=== PATIENT | female | born 1955 | race Hispanic/Latino ===

== ENCOUNTER 2022-11-20 00:39 | Emergency (ER) | payer OTHER ==
[2022-11-20] MEDS ORDERED: traMADol HCl 50 MG TAB ONE (01:14)
[2022-11-20] MEDS ORDERED: Lidocaine 1% PF 5 ML VIAL ONE (01:36)
[2022-11-20] MEDS ORDERED: Bacitracin 1 PK ONE (02:26)
== END 2022-11-20 02:30 | disposition home or self-care (01) ==
LOC: CSHERS 00:39
DX: S01.112A Laceration without foreign body of left eyelid and periocular area, initial encounter (principal); W01.0XXA Fall on same level from slipping, tripping and stumbling without subsequent striking against object, initial encounter; Y92.091 Bathroom in other non-institutional residence as the place of occurrence of the external cause
CPT/HCPCS: 12011; 70450

== ENCOUNTER 2025-06-24 20:40 | Inpatient (IN) | payer OTHER ==
[~2025-06-24 20:40] MED LIST: Iopamidol 370 76% 100 ML VIAL ONE
[2025-06-24 21:13] LABS: #Basophils 0.04 10x3/uL (0.0-0.2); #Eosinophils 0.12 10x3/uL (0.0-0.5); #Monocytes 0.50 10x3/uL (0.0-1.1); #Neutrophils 2.58 10x3/uL (1.5-8.4); %Basophils 0.8 % (0.0-2.0); %Eosinophils 2.5 % (0.0-6.0); %Lymphocytes 33.1 % (18.0-47.0); %Monocytes 10.3 % (0.0-10.0); %Neutrophils 52.9 % (40.0-75.0); Hematocrit 44.7 % (34.9-44.5); Hemoglobin 15.0 g/dL (12.0-15.5); Mean Corpuscular Hemoglobin 30.2 pg (27.0-33.0); Mean Corpuscular Volume 89.9 fL (81.6-98.3); Platelet Count 154 10x3/uL (150-450); Red Blood Cell (RBC) Count 4.97 10x6/uL (3.90-5.03); White Blood Cell (WBC) Count 4.87 10x3/uL (3.5-10.5)
[2025-06-24 21:31] LABS: Glucose, Urine (Dipstick) >=1000 mg/dL (Negative); Leukocyte Negative (Negative); Protein, Urine (Dipstick) Negative (Neg-Trace); Specific Gravity, Urine 1.010 (1.005-1.030)
[2025-06-24 21:39] LABS: Cocaine Metabolite Screen Negative (Negative); THC/Cannabinoid Screen Negative (Negative); Tricyclic Screen PRELIM POSITIVE (Negative)
[2025-06-24 21:42] LABS: Acetaminophen 14 mcg/mL (Less than 10); Lipase 49 U/L (8-78); Salicylate Less than 8.0 mg/dL (Less than 8.0)
[2025-06-24 21:43] LABS: ALT (SGPT) 54 U/L (Less than 34); AST (SGOT) 46 U/L (11-34); Albumin 3.9 g/dL (3.1-4.5); Alkaline Phosphatase 85 U/L (40-110); Anion Gap 18 mmol/L (10-20); BUN (Urea Nitrogen) 13 mg/dL (9.8-20.1); Bilirubin, Total 0.2 mg/dL (0.3-1.2); Calc. Creatinine Clearance 0 mL/min (70-130); Calcium 9.0 mg/dL (7.8-10.44); Carbon Dioxide 24 mmol/L (23-31); Chloride 94 mmol/L (98-107); Globulin 4.0 g/dL (2.4-3.5); Glucose 203 mg/dL (83-110); Potassium 5.2 mmol/L (3.5-5.1); Sodium 131 mmol/L (136-145)
[2025-06-24 21:48] LABS: Troponin I Less than 0.010 ng/mL (< 0.028)
[2025-06-24 21:52] LABS: Bacteria/HPF None Seen HPF (None Seen); CAUTI Indications for Culture Alt mental st,lethar; RBC/HPF None Seen HPF (0-3); WBC/HPF None Seen HPF (0-3)
[2025-06-24 21:53] LABS: Urine Culture Reflex No No
[2025-06-24] MEDS ORDERED: hydrALAZINE 20 MG/ML VIAL SLOW IVP PRN (23:37)
[2025-06-24] MEDS ORDERED: Senokot S 8.6-50 MG TAB PO PRN (23:40)
[2025-06-24] MEDS ORDERED: Ondansetron PF 4 MG/2 ML Vial IVP PRN (23:40)
[2025-06-24] MEDS ORDERED: Aspirin Chewable 81 MG TAB ONE (23:45)
[2025-06-25] MEDS ORDERED: Glucagon 1 MG/ML KIT IM PRN (01:02)
[2025-06-25] MEDS ORDERED: Dextrose 50% Abboject 50 ML SYRINGE SLOW IVP PRN (01:02)
[2025-06-25 02:05] VITALS: BMI 33.2
[2025-06-25] MEDS ORDERED: PNEUMOC 20-VAL CONJ-DIP CRM/PF 0.5 ML SYRINGE IM ONE (02:15)
[2025-06-25] MEDS: Furosemide 40 MG (4 mL) VIAL SLOW IVP SCH ×2 (02:35→09:38)
[2025-06-25 04:26] LABS: #Basophils 0.03 10x3/uL (0.0-0.2); #Eosinophils 0.15 10x3/uL (0.0-0.5); #Monocytes 0.43 10x3/uL (0.0-1.1); #Neutrophils 1.83 10x3/uL (1.5-8.4); %Basophils 0.8 % (0.0-2.0); %Eosinophils 3.9 % (0.0-6.0); %Lymphocytes 36.1 % (18.0-47.0); %Monocytes 11.2 % (0.0-10.0); %Neutrophils 47.5 % (40.0-75.0); Hematocrit 45.3 % (34.9-44.5); Hemoglobin 14.8 g/dL (12.0-15.5); Mean Corpuscular Hemoglobin 29.5 pg (27.0-33.0); Mean Corpuscular Volume 90.2 fL (81.6-98.3); Platelet Count 140 10x3/uL (150-450); Red Blood Cell (RBC) Count 5.02 10x6/uL (3.90-5.03); White Blood Cell (WBC) Count 3.85 10x3/uL (3.5-10.5)
[2025-06-25 04:41] LABS: Anion Gap 18 mmol/L (10-20); BUN (Urea Nitrogen) 11 mg/dL (9.8-20.1); Calc. Creatinine Clearance 150 mL/min (70-130); Calcium 8.8 mg/dL (7.8-10.44); Carbon Dioxide 29 mmol/L (23-31); Cardiac Risk 4.9 (Less than 4.5); Chloride 94 mmol/L (98-107); Cholesterol 187 mg/dl (< 200 Desired); Glucose 163 mg/dL (83-110); HDL Cholesterol 38 mg/dL (>60 Neg Risk); LDL Cholesterol, Calculated 105 mg/dL; Potassium 3.9 mmol/L (3.5-5.1); Sodium 137 mmol/L (136-145); Triglycerides 222 mg/dL (Less than 150)
[2025-06-25] MEDS ORDERED: CLOBAZAM 10 MG PO SCH (09:00)
[2025-06-25] MEDS: levETIRAcetam 500 MG TAB PO SCH (09:37)
[2025-06-25] MEDS: Aspirin 81 mg Enteric Coated Tablet PO SCH (09:37)
[2025-06-25] MEDS: Famotidine 20 MG TAB PO SCH (09:38)
[2025-06-25] MEDS: Dapagliflozin Propanediol 10 MG TAB PO SCH (09:38)
[2025-06-25] MEDS: Apixaban 5 MG TAB PO SCH (09:38)
[2025-06-25] MEDS: Divalproex Sodium 500 MG ER.TAB PO SCH (21:06)
[2025-06-25] MEDS: Lantus 1000 UNITS/10 ML VIAL SC SCH (21:07)
[2025-06-26] MEDS: FYCOMPA PO SCH (02:13)
[2025-06-26] MEDS: Losartan 25 MG TAB PO SCH (10:10)
[2025-06-26 10:48] LABS: Anion Gap 14 mmol/L (10-20); BUN (Urea Nitrogen) 18 mg/dL (9.8-20.1); Calc. Creatinine Clearance 119 mL/min (70-130); Calcium 9.5 mg/dL (7.8-10.44); Carbon Dioxide 30 mmol/L (23-31); Chloride 96 mmol/L (98-107); Glucose 231 mg/dL (83-110); Magnesium 1.8 mg/dL (1.6-2.6); Potassium 4.0 mmol/L (3.5-5.1); Sodium 136 mmol/L (136-145)
[2025-06-26] MEDS: Furosemide 40 MG TAB PO SCH (14:20)
[2025-06-27] MEDS: Acetaminophen 325 MG TAB PO PRN (01:19)
[2025-06-27] MEDS: Melatonin 3 MG TAB PO PRN (01:20)
[2025-06-27 03:20] LABS: #Basophils Less than 0.03 10x3/uL (0.0-0.2); #Eosinophils 0.11 10x3/uL (0.0-0.5); #Monocytes 0.57 10x3/uL (0.0-1.1); #Neutrophils 2.97 10x3/uL (1.5-8.4); %Basophils 0.4 % (0.0-2.0); %Eosinophils 2.1 % (0.0-6.0); %Lymphocytes 29.2 % (18.0-47.0); %Monocytes 11.0 % (0.0-10.0); %Neutrophils 57.1 % (40.0-75.0); Hematocrit 51.3 % (34.9-44.5); Hemoglobin 16.7 g/dL (12.0-15.5); Mean Corpuscular Hemoglobin 29.3 pg (27.0-33.0); Mean Corpuscular Volume 90.2 fL (81.6-98.3); Platelet Count 166 10x3/uL (150-450); Red Blood Cell (RBC) Count 5.69 10x6/uL (3.90-5.03); White Blood Cell (WBC) Count 5.20 10x3/uL (3.5-10.5)
[2025-06-27 03:43] LABS: Anion Gap 18 mmol/L (10-20); BUN (Urea Nitrogen) 24 mg/dL (9.8-20.1); Calc. Creatinine Clearance 117 mL/min (70-130); Calcium 9.1 mg/dL (7.8-10.44); Carbon Dioxide 25 mmol/L (23-31); Chloride 99 mmol/L (98-107); Glucose 155 mg/dL (83-110); Potassium 4.3 mmol/L (3.5-5.1); Sodium 138 mmol/L (136-145)
[2025-06-27] MEDS: Losartan 50 MG TAB PO SCH (08:41)
[2025-06-27 15:55] VITALS: BP 128/85; TEMP 97.9
[2025-06-28] MEDS ORDERED: Furosemide 40 MG TAB PO SCH (09:00)
== END 2025-06-27 17:55 | DRG 73 ==
LOC: CSHERS 20:40 → CSHTELE 23:40
PROVIDERS: ADMIT Internal Medicine; ATTEND Internal Medicine
DX: G51.0 Bell's palsy (principal); I50.43 Acute on chronic combined systolic (congestive) and diastolic (congestive) heart failure; E87.1 Hypo-osmolality and hyponatremia; E87.20 Acidosis, unspecified; I11.0 Hypertensive heart disease with heart failure; E11.9 Type 2 diabetes mellitus without complications; E78.5 Hyperlipidemia, unspecified; G40.909 Epilepsy, unspecified, not intractable, without status epilepticus; D69.6 Thrombocytopenia, unspecified; K59.00 Constipation, unspecified; E87.5 Hyperkalemia; I48.0 Paroxysmal atrial fibrillation; R47.81 Slurred speech; K21.9 Gastro-esophageal reflux disease without esophagitis; Z86.718 Personal history of other venous thrombosis and embolism; Z86.73 Personal history of transient ischemic attack (TIA), and cerebral infarction without residual deficits; Z98.890 Other specified postprocedural states; Z83.3 Family history of diabetes mellitus; Z79.84 Long term (current) use of oral hypoglycemic drugs; Z79.899 Other long term (current) drug therapy
CPT/HCPCS: 36415; 36416; 70496; 70498; 70551; 71045; 71260; 74177; 80048; 80053; 80061; 80306; 80307; 81001; 83605; 83690; 83735; 84443; 84484; 85025; 87426; 93005; 93306; 94760; J1815; J1940; Q9967

== ENCOUNTER 2025-07-11 14:38 | Emergency (ER) | payer OTHER ==
[2025-07-11] MEDS ORDERED: Metoprolol Tartrate 5 MG (5 mL) VIAL ONE ×2 (15:14→17:06)
[2025-07-11 15:37] LABS: ALT (SGPT) 96 U/L (Less than 34); AST (SGOT) 78 U/L (11-34); Albumin 3.5 g/dL (3.1-4.5); Alkaline Phosphatase 78 U/L (40-110); Anion Gap 19 mmol/L (10-20); BUN (Urea Nitrogen) 21 mg/dL (9.8-20.1); Bilirubin, Total 0.3 mg/dL (0.3-1.2); Calc. Creatinine Clearance 0 mL/min (70-130); Calcium 9.2 mg/dL (7.8-10.44); Carbon Dioxide 24 mmol/L (23-31); Chloride 97 mmol/L (98-107); Globulin 4.7 g/dL (2.4-3.5); Glucose 249 mg/dL (83-110); Potassium 4.7 mmol/L (3.5-5.1); Sodium 135 mmol/L (136-145)
[2025-07-11 15:38] LABS: #Basophils 0.05 10x3/uL (0.0-0.2); #Eosinophils 0.14 10x3/uL (0.0-0.5); #Monocytes 0.64 10x3/uL (0.0-1.1); #Neutrophils 5.44 10x3/uL (1.5-8.4); %Basophils 0.6 % (0.0-2.0); %Eosinophils 1.7 % (0.0-6.0); %Lymphocytes 21.8 % (18.0-47.0); %Monocytes 7.9 % (0.0-10.0); %Neutrophils 67.5 % (40.0-75.0); Hematocrit 46.7 % (34.9-44.5); Hemoglobin 15.1 g/dL (12.0-15.5); Mean Corpuscular Hemoglobin 29.8 pg (27.0-33.0); Mean Corpuscular Volume 92.3 fL (81.6-98.3); Platelet Count 234 10x3/uL (150-450); Red Blood Cell (RBC) Count 5.06 10x6/uL (3.90-5.03); White Blood Cell (WBC) Count 8.07 10x3/uL (3.5-10.5)
[2025-07-11 15:43] LABS: Troponin I 0.027 ng/mL (< 0.028)
[2025-07-11] MEDS ORDERED: HYDROcodone/Acetaminophen 5/325 mg Tablet ONE (17:01)
[2025-07-11 18:33] LABS: Glucose, Urine (Dipstick) >=1000 mg/dL (Negative); Leukocyte Negative (Negative); Protein, Urine (Dipstick) Negative (Neg-Trace); Specific Gravity, Urine 1.010 (1.005-1.030)
[2025-07-11 18:47] LABS: CAUTI Indications for Culture Alt mental st,lethar; RBC/HPF 0-3 HPF (0-3); WBC/HPF 0-3 HPF (0-3)
[2025-07-11 18:49] LABS: Bacteria/HPF Rare-Few HPF (None Seen)
[2025-07-11 18:50] LABS: Urine Culture Reflex No No
[2025-07-11] MEDS ORDERED: Lidocaine 1% w/Epinephrine 1:200K 30 ML VIAL ONE (18:52)
== END 2025-07-11 19:09 | disposition home or self-care (01) ==
LOC: CSHERS 14:38
DX: S01.01XA Laceration without foreign body of scalp, initial encounter (principal); R00.0 Tachycardia, unspecified; Z86.718 Personal history of other venous thrombosis and embolism; E11.9 Type 2 diabetes mellitus without complications; Z75.8 Other problems related to medical facilities and other health care; W01.198A Fall on same level from slipping, tripping and stumbling with subsequent striking against other object, initial encounter
CPT/HCPCS: 12002; 70450; 71045; 72125; 80053; 81001; 83880; 84484; 85025; 93005; 96374; 96376